=== PATIENT | female | born 1995 | race Hispanic/Latino ===

== ENCOUNTER 2017-06-16 03:06 | Emergency (ER) | payer OTHER, SELFPAY ==
[2017-06-16] MEDS ORDERED: Ibuprofen 800 MG TAB ONE (05:07)
--- NOTE | 2017-06-16 08:52 | RAD ---
LEFT ELBOW 2 VIEWS: Date: 06/16/17 PROVIDED CLINICAL HISTORY: Left elbow pain status post injury. FINDINGS: There is no evidence for fracture or other acute osseous abnormality. If there is persistent clinical concern, conservative management and follow-up imaging are advised. IMPRESSION: As above. POS: MIRELA
--- NOTE | 2017-06-16 08:54 | RAD ---
RIGHT KNEE 4 VIEWS: Date: 06/16/17 PROVIDED CLINICAL HISTORY: Right knee pain status post injury. FINDINGS: There is no evidence for fracture or other acute osseous abnormality. If there is persistent clinical concern, conservative management and follow-up imaging are advised. IMPRESSION: As above. POS: MIRELA
--- NOTE | 2017-06-16 08:55 | RAD ---
LEFT KNEE 4 VIEWS: Date: 06/16/17 PROVIDED CLINICAL HISTORY: Left knee pain status post injury. FINDINGS: No evidence for fracture or other acute osseous abnormality. If there is persistent clinical concern, conservative management and follow-up imaging are advised. IMPRESSION: As above. POS: MIRELA
== END 2017-06-16 05:25 | disposition home or self-care (01) ==
LOC: ERS 03:06
DX: S80.02XA Contusion of left knee, initial encounter (principal); S80.01XA Contusion of right knee, initial encounter; S50.02XA Contusion of left elbow, initial encounter; W18.30XA Fall on same level, unspecified, initial encounter; Y93.02 Activity, running

== ENCOUNTER 2022-07-16 12:17 | Emergency (ER) | payer OTHER, SELFPAY ==
[2022-07-16] MEDS ORDERED: Mag-Al 1200 mg/1200 mg/30 ML UDCUP ONE (13:29)
[2022-07-16] MEDS ORDERED: Lidocaine Viscous Sol 2% 15 ml UD Cup ONE (13:29)
== END 2022-07-16 14:50 | disposition home or self-care (01) ==
LOC: ERS 12:17
DX: O99.612 Diseases of the digestive system complicating pregnancy, second trimester (principal); O99.512 Diseases of the respiratory system complicating pregnancy, second trimester; Z20.822 Contact with and (suspected) exposure to COVID-19; Z3A.20 20 weeks gestation of pregnancy
CPT/HCPCS: 87081; 87430; 87804; 99284; U0003; U0005

== ENCOUNTER 2022-10-10 03:51 | Emergency (ER) | payer OTHER, SELFPAY ==
[2022-10-10 04:33] LABS: #Basophils 0.1 thou/uL (0.0-0.2); #Eosinphils 0.1 thou/uL (0.0-0.7); #Monocytes 0.9 thou/uL (0.11-0.59); #Neutrophils 8.7 thou/uL (1.40-6.50); %Basophils 0.4 % (0.0-1.0); %Lymphocytes 17.5 % (21.0-51.0); %Monocytes 7.2 % (0.0-10.0); %Neutrophils 73.3 % (42.0-75.0); Hemoglobin 12.6 g/dL (12.0-16.0); Mean Corpuscular HGB CONC 34.1 g/dL (32.0-36.0); Mean Corpuscular Hemoglobin 30.9 pg (27.0-31.0); Mean Corpuscular Volume 90.4 fl (78.0-98.0); Mean Platelet Volume 9.3 fL (7.4-10.4); Platelet Count 289 10x3/uL (130-400); RBC Distribution Width 13.2 % (11.5-14.5); Red Blood Cell (RBC) Count 4.08 mill/uL (4.20-5.40); White Blood Cell (WBC) Count 11.8 10x3/uL (4.8-10.8)
[2022-10-10 05:00] LABS: ALT (SGPT) 21 U/L (8-55); AST (SGOT) 17 U/L (5-34); Albumin 3.4 g/dL (3.5-5.0); Alkaline Phosphatase 140 U/L (40-110); Anion Gap 14 mmol/L (10-20); BUN (Urea Nitrogen) 13 mg/dL (7.0-18.7); Bilirubin, Total 0.2 mg/dL (0.2-1.2); Calc. Creatinine Clearance 0 mL/min (70-130); Calcium 9.7 mg/dL (7.8-10.44); Carbon Dioxide 22 mmol/L (22-29); Chloride 104 mmol/L (98-107); Estimated GFR 131; Globulin 3.2 g/dL (2.4-3.5); Glucose 88 mg/dL (70-105); Potassium 3.9 mmol/L (3.5-5.1); Protein, Total 6.6 g/dL (6.0-8.3); Sodium 136 mmol/L (136-145)
[2022-10-10] MEDS ORDERED: Acetaminophen 500 MG TAB ONE (05:02)
== END 2022-10-10 06:30 | disposition short-term general hospital (02) ==
LOC: ERS 03:51
DX: O99.613 Diseases of the digestive system complicating pregnancy, third trimester (principal); D72.829 Elevated white blood cell count, unspecified; W10.9XXA Fall (on) (from) unspecified stairs and steps, initial encounter; Z3A.31 31 weeks gestation of pregnancy
CPT/HCPCS: 36415; 80053; 85025